=== PATIENT | female | born 1950 | race Caucasian/White ===

== ENCOUNTER 2022-12-24 11:02 | Outpatient (CLI) | payer OTHER, SELFPAY | END 2022-12-24 11:03 | disposition home or self-care (01) | PROVIDERS: PCP Emergency Medicine; Visit Provider Emergency Medicine | DX: I10 Essential (primary) hypertension (principal); Z13.1 Encounter for screening for diabetes mellitus; Z13.6 Encounter for screening for cardiovascular disorders | CPT/HCPCS: 80053; 80061 ==

== ENCOUNTER 2023-09-17 12:24 | Outpatient (CLI) | payer OTHER, SELFPAY | END 2023-09-17 12:25 | disposition home or self-care (01) | LOC: LKVREF 12:27 | PROVIDERS: PCP Emergency Medicine; Visit Provider Family Medicine | DX: R07.89 Other chest pain (principal) | CPT/HCPCS: 83880 ==

== ENCOUNTER 2024-03-17 14:14 | Outpatient (CLI) | payer OTHER, SELFPAY | END 2024-03-17 14:15 | disposition home or self-care (01) | LOC: NFLDREF 03-21 17:56 | PROVIDERS: PCP Emergency Medicine; Referring Provider Emergency Medicine; Visit Provider Emergency Medicine | DX: I10 Essential (primary) hypertension (principal); Z13.6 Encounter for screening for cardiovascular disorders; J45.20 Mild intermittent asthma, uncomplicated; R58 Hemorrhage, not elsewhere classified | CPT/HCPCS: 80048; 80061 ==